=== PATIENT | female | born 1955 | race Caucasian/White ===

== ENCOUNTER 2019-06-07 13:00 | Emergency (ER) | payer MEDICARE, OTHER ==
[2019-06-07] MEDS ORDERED: Ketorolac 60 MG/2 ML SDV IM ONE (14:05)
--- NOTE | 2019-06-07 14:16 | EDM.PDOC ---
ED HPI GENERAL MEDICAL PROBLEM - General Chief Complaint: Back Pain or Injury Stated Complaint: left side/back pain Time Seen by Provider: 06/07/19 13:16 Source of Information: Reports: Patient History Limitations: Reports: No Limitations - History of Present Illness INITIAL COMMENTS - FREE TEXT/NARRATIVE: Pt with left sided mid-back pain Has been present for several days No fever No cough No trauma No chest pain No SOB No dysuria Pain extends to the front Has had this before but not lasted this long Onset: Gradual Duration: Day(s): Location: Reports: Back Quality: Reports: Dull Improves with: Reports: Rest Worsens with: Reports: Movement Treatments [employer]: Reports: Acetaminophen, Heat Therapy, NSAIDS Left Middle Back Pain Score (Numeric/FACES): 6 - Related Data Allergies Allergy/AdvReac Type Severity Reaction Status Date / Time No Known Allergies Allergy Verified 06/07/19 13:01 Home Meds: Home Meds Acetaminophen 1,000 mg PO Q8H 06/07/19 [History] Aspirin/Sod Bicarb/Citric Acid [[place] Original] 1 tab PO BEDTIME [History] Ibuprofen 400 mg PO Q6H 06/07/19 [History] Past Medical History HEENT History: Reports: Impaired Vision Gastrointestinal History: Reports: GERD Other Oncologic History: previous cancer hx Dermatologic History: Reports: Psoriasis Social & Family History - Tobacco Use Smoking Status *Q: Current Every Day Smoker Years of Tobacco use: 40 Packs/Tins Daily: 1 ED ROS GENERAL - Review of Systems Review Of Systems: See Below Respiratory: Reports: No Symptoms Cardiovascular: Reports: No Symptoms GI/Abdominal: Reports: No Symptoms Musculoskeletal: Reports: Back Pain ED EXAM,LOWER BACK PAIN/INJURY - Physical Exam Exam: See Below Exam Limited By: No Limitations General Appearance: No Apparent Distress Respiratory/Chest: Lungs Clear Cardiovascular: Regular Rate, Rhythm GI/Abdominal: Non-Tender Back Exam: Other (Left mid-plywood layup line back feeder with palpation) Skin Exam: Other (psoriasis rash) Course - Vital Signs Last Recorded V/S: Last Vital Signs Temp 99.5 F 06/07/19 13:08 Pulse 86 06/07/19 13:08 Resp 20 06/07/19 13:08 BP 138/82 06/07/19 13:08 Pulse Ox 100 06/07/19 13:08 - Orders/Labs/Meds Labs: Laboratory Tests 06/07/19 Range/Units 13:20 Specimen Type . Urine Color Yellow Urine Appearance Clear Urine pH 7.0 (5.0-9.0) Ur Specific [place] 1.015 (1.005-1.030) Urine Protein Negative (NEGATIVE) mg/dL Urine Glucose (UA) Negative (NEGATIVE) mg/dL Urine Ketones Negative (NEGATIVE) mg/dL Urine Occult Blood Negative (NEGATIVE) Urine Nitrite Negative (NEGATIVE) Urine Bilirubin Negative (NEGATIVE) Urine Urobilinogen 0.2 (0.2-1.0) E.U./dL Ur Leukocyte Esterase Negative (NEGATIVE) Meds: Medications Discontinued Medications Generic Name Dose Route Start Last Admin Trade Name Freq PRN Reason Stop Dose Admin Ketorolac Tromethamine 60 mg 06/07/19 14:05 Toradol IM 06/07/19 14:06 ONETIME ONE - Re-Assessments/Exams Free Text/Narrative Re-Assessment/Exam: 06/07/19 14:14 Pt given Toradol 60 mg IM in ER Departure - Departure Time of Disposition: 14:15 Disposition: Home, Self-Care 01 Clinical Impression: Back pain Qualifiers: Back pain location: thoracic back pain Chronicity: acute Back pain laterality: left Qualified Code(s): M54.6 - Pain in thoracic spine - Discharge Information *PRESCRIPTION DRUG MONITORING PROGRAM REVIEWED*: Not Applicable *COPY OF PRESCRIPTION DRUG MONITORING REPORT IN PATIENT JOHN: Not Applicable Instructions: Acute Back Pain, Adult Referrals: Amaris Nielsen PA-C [Primary Care Provider] - Additional Instructions: Ice as needed Tylenol or Motrin as needed Follow up in clinic Sepsis Event Note - Evaluation Sepsis Screening Result: No Definite Risk - Focused Exam Vital Signs: Vital Signs Temp Pulse Resp BP Pulse Ox 06/07/19 13:08 99.5 F 86 20 138/82 100 Date Exam was Performed: 06/07/19 Time Exam was Performed: 14:11
== END 2019-06-07 14:30 | disposition home or self-care (01) ==
LOC: LL.ED 13:00
DX: M54.6 Pain in thoracic spine (principal); F17.210 Nicotine dependence, cigarettes, uncomplicated; Z79.899 Other long term (current) drug therapy
CPT/HCPCS: 81003; 96372; 99283; J1885

== ENCOUNTER 2021-05-04 14:22 | Emergency (ER) | payer MEDICARE, OTHER, MEDICAID ==
[2021-05-04 15:16] LABS: RESPIRATORY SYNCYTIAL VIR NAA NEGATIVE (NEGATIVE)
[2021-05-04 15:17] LABS: CORONAVIRUS COVID-19 NAA POSITIVE (NEGATIVE)
[2021-05-04 16:07] LABS: ANION GAP 11.5 meq/L (7-15); CHLORIDE,CL 105 mmol/L (98-107); SODIUM,NA 141 mmol/L (136-145)
== END 2021-05-04 16:55 | disposition home or self-care (01) ==
LOC: LL.ED 14:22
DX: U07.1 COVID-19 (principal); J44.9 Chronic obstructive pulmonary disease, unspecified; K21.9 Gastro-esophageal reflux disease without esophagitis; Z79.82 Long term (current) use of aspirin; Z79.899 Other long term (current) drug therapy; Z72.0 Tobacco use
CPT/HCPCS: 0241U; 36415; 80053; 82728; 85025; 85379; 85610; 99283

== ENCOUNTER 2023-11-05 11:30 | Day surgery (SDC) | payer MEDICARE, OTHER, MEDICAID ==
[2023-11-05] MEDS ORDERED: Sodium Chloride 0.9% 10 ML Syringe FLUSH PRN (11:45)
[2023-11-05] MEDS: Lactated Ringers 1,000 ML IV SCH (12:01)
[2023-11-05] MEDS ORDERED: Propofol 200 MG/20 ML SDV IV ONE (13:37)
[2023-11-05] MEDS ORDERED: Lidocaine 2% 5 ML SDV ONE (13:37)
[2023-11-05] MEDS ORDERED: Ondansetron 4 MG/2 ML SDV IVPUSH ONE (13:37)
[2023-11-05] MEDS ORDERED: Propofol 200 MG/20 ML SDV ONE (13:38)
== END 2023-11-05 15:15 | disposition home or self-care (01) ==
LOC: LL.SDS 11:30
PROVIDERS: ATTEND Surgery
DX: Z12.11 Encounter for screening for malignant neoplasm of colon (principal); K62.1 Rectal polyp; K64.4 Residual hemorrhoidal skin tags; K64.8 Other hemorrhoids; R19.5 Other fecal abnormalities; I10 Essential (primary) hypertension; F17.210 Nicotine dependence, cigarettes, uncomplicated
CPT/HCPCS: 00811; J2405; J2704; J3490; J7120

== ENCOUNTER 2024-12-15 07:38 | Day surgery (SDC) | payer MEDICARE, OTHER ==
[2024-12-15] MEDS ORDERED: Sodium Chloride 0.9% 10 ML Syringe FLUSH PRN (08:00)
[2024-12-15] MEDS: Lactated Ringers 1,000 ML IV SCH (08:10)
[2024-12-15] MEDS ORDERED: Propofol 200 MG/20 ML SDV ONE (08:20)
[2024-12-15] MEDS ORDERED: Midazolam 1 MG/ML 2 ML SDV ONE (08:20)
[2024-12-15] MEDS ORDERED: Ondansetron 4 MG/2 ML SDV IVPUSH ONE (09:02)
== END 2024-12-15 10:43 | disposition home or self-care (01) ==
LOC: LL.SDS 07:38
PROVIDERS: ATTEND Surgery
DX: K29.50 Unspecified chronic gastritis without bleeding (principal); K31.89 Other diseases of stomach and duodenum; K22.70 Barrett's esophagus without dysplasia; K20.90 Esophagitis, unspecified without bleeding; K44.9 Diaphragmatic hernia without obstruction or gangrene; I10 Essential (primary) hypertension; F17.210 Nicotine dependence, cigarettes, uncomplicated
CPT/HCPCS: 00731; 88305; 88342; A9270-GY; J1596; J2250; J2405; J2704; J7120

== ENCOUNTER 2024-12-24 18:21 | Emergency (ER) | payer MEDICARE, OTHER ==
[2024-12-24] MEDS ORDERED: Naloxone 0.4 MG/ML SDV IVPUSH PRN (18:30)
[2024-12-24 18:34] LABS: BASOPHILS ABSOLUTE AUTO 0.02 K/uL (0.00-0.20); BASOPHILS PERCENT AUTO 0.2 % (0.0-2.0); EOSINOPHILS ABSOLUTE AUTO 0.01 K/uL (0.00-0.50); EOSINOPHILS PERCENT AUTO 0.1 % (0.0-5.0); IMMATURE GRAN ABSOLUTE AUTO 0.02 10^3/uL (0.00-0.04); IMMATURE GRAN PERCENT AUTO 0.2 % (0.0-0.4); LYMPHOCYTES ABSOLUTE AUTO 2.47 K/uL (0.50-3.50); LYMPHOCYTES PERCENT AUTO 29.6 % (10.0-50.0); MONOCYTES ABSOLUTE AUTO 0.64 K/uL (0.00-1.00); MONOCYTES PERCENT AUTO 7.7 % (2.0-14.0); NEUTROPHILS ABSOLUTE AUTO 5.18 K/uL (1.40-7.00); NEUTROPHILS PERCENT AUTO 62.2 % (45.0-80.0); PLATELET COUNT,PLT 263 K/uL (150-350); RED BLOOD CELL COUNT 4.05 M/uL (3.77-5.09); RED CELL DISTRIBUTION WIDTH 14.2 % (11.2-14.1); WHITE BLOOD CELL COUNT,WBC 8.3 K/uL (4.0-10.2)
[2024-12-24] MEDS: Ondansetron 4 MG/2 ML SDV IVPUSH ONE (18:34)
[2024-12-24] MEDS: Sodium Chloride 0.9% 10 ML Syringe FLUSH PRN (18:34)
[2024-12-24] MEDS: Ondansetron 4 MG/2 ML SDV ONE (18:38)
[2024-12-24 18:58] LABS: ALANINE AMINOTRANSFERASE,ALT 14.0 U/L (12-78); ASPARTATE AMNIOTRANSFERASE,AST 14.0 U/L (15-37); BILIRUBIN TOTAL 0.5 mg/dL (0.2-1.0); BLOOD UREA NITROGEN,BUN 12.0 mg/dL (7-18); CARBON DIOXIDE,CO2 22.9 mmol/L (21.0-32.0); CHLORIDE,CL 103.0 mmol/L (98-107); CREATININE 0.69 mg/dL (0.51-1.17); EST CRCL DRUG DOSING (CG) 62.76 mL/min; ESTIMATED GFR 93.0 mL/min (>=60); GLUCOSE RANDOM 116.0 mg/dL (70-99); POTASSIUM,K 3.9 mmol/L (3.5-5.1); PRO B-TYPE NATRIUR PEPT,BNPPRO 266.0 pg/mL (0-125); PROTEIN TOTAL,TP 7.3 g/dL (6.4-8.2); SODIUM,NA 140.0 mmol/L (136-145)
[2024-12-24 19:08] LABS: INR 1.0 (0.9-1.1); PTT,PARTIAL THROMBOPLSTIN TIME 24.5 SEC (23.8-34.4)
[2024-12-24] MEDS: Ketorolac 30 MG/ML SDV IVPUSH ONE (20:13)
[2024-12-24] MEDS: Iopamidol 612 MG/ML 100 ML Bottle IVPUSH ONE (20:20)
[2024-12-24] MEDS: Alum Hydrox/Mag Hydrox/Simeth 30 ML, Lidocaine 2% 15 ML PO ONE (20:36)
[2024-12-24] MEDS: Take Home: Ketorolac 10 MG Tab, 4 Tab Pack PO ONE (22:53)
== END 2024-12-24 23:00 | disposition home or self-care (01) ==
LOC: LL.ED 18:21
DX: R07.9 Chest pain, unspecified (principal); J44.9 Chronic obstructive pulmonary disease, unspecified; I11.0 Hypertensive heart disease with heart failure; I50.9 Heart failure, unspecified; F17.210 Nicotine dependence, cigarettes, uncomplicated; E78.00 Pure hypercholesterolemia, unspecified; Z79.899 Other long term (current) drug therapy; Z79.82 Long term (current) use of aspirin
CPT/HCPCS: 36415; 71045; 71260; 74177; 80053; 83605; 83690; 83735; 83880; 84484; 85025; 85610; 85730; 93005; 93010; 94761; 96374; 96375; 99284; 99285-25; A9270-GY; J1171; J1885; J2405; Q9967